=== PATIENT | male | born 1995 | race Two or more races ===

== ENCOUNTER 2020-01-30 20:28 | Outpatient (CLI) | payer BC | END 2020-01-30 20:29 | disposition home or self-care (01) | LOC: COV 20:28 | PROVIDERS: ATTEND Family Medicine | DX: R05 Cough (principal); R06.02 Shortness of breath; M79.10 Myalgia, unspecified site; R07.0 Pain in throat; R19.7 Diarrhea, unspecified; Z20.828 Contact with and (suspected) exposure to other viral communicable diseases ==